=== PATIENT | female | born 2005 | race African-American/Black ===

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

== ENCOUNTER → 2025-03-24 | Emergency (ER) | payer MEDICAID ==
[~2025-03-24] VITALS: Ht 167.6 cm; Wt 87.0 kg
[2025-03-24 17:40] VITALS: O2SAT 99
[2025-03-24] MEDS: ACETAMINOPHEN 325MG TABLET PO ONE (18:50)
[2025-03-24 19:52] VITALS: TEMP 36.5; O2SAT 97
[2025-03-24 20:01] VITALS: BP 163/66; PULSE 83; RESP 15
[2025-03-24] MEDS: KETOROLAC 30MG/ML VIAL IM ONE (20:01)
[2025-03-24] MEDS: METOCLOPRAMIDE HCL 10MG TABLET PO ONE (20:02)
[2025-03-24 21:12] LABS: BASOPHILS % 0.9 % (0.0-2.0); EOSINOPHILS % 0.2 % (0.0-5.0); HEMATOCRIT. 43.4 % (36.0-48.0); HEMOGLOBIN. 14.8 g/dL (12.0-16.0); LYMPHOCYTES % 23.9 % (20.0-50.0); MEAN PLATELET VOLUME 7.5 fl (7.4-10.4); MONOCYTES % 6.6 % (2.0-8.0); NEUTROPHILS % 68.4 % (40.0-76.0); PLATELET 353 x1000/uL (130-400); RED BLOOD CELL COUNT 5.02 mill/uL (4.2-5.4); RED CELL DISTRIBUTION WIDTH 12.6 % (11.6-14.6)
[2025-03-24 21:23] LABS: HCG SCREEN NEGATIVE
[2025-03-24 21:25] LABS: CREATININE 0.8 mg/dL (0.6-1.0); UREA NITROGEN BLOOD 13 mg/dL (9-23)
[2025-03-24 21:26] LABS: TROPONIN I HIGH SENSITIVITY < 4 ng/L (3.0-34)
== END ==
LOC: ER 17:34
DX: R55 Syncope and collapse (principal); R51.9 Headache, unspecified; F12.90 Cannabis use, unspecified, uncomplicated; Z79.899 Other long term (current) drug therapy; Z88.5 Allergy status to narcotic agent
CPT/HCPCS: 80048; 81025; 84703; 85025; 84484; 36415; 71045; 93005; 96372; 99285; J8597; J1885; Z7610

== ENCOUNTER 2025-05-18 06:08 | Emergency (ER) | payer MEDICAID ==
[~2025-05-18] VITALS: Ht 162.6 cm; Wt 73.0 kg
[2025-05-18 06:26] VITALS: O2SAT 100
[2025-05-18 06:40] VITALS: BP 121/70; PULSE 86; RESP 18; TEMP 36.7; O2SAT 98
[2025-05-18] MEDS ORDERED: KETOROLAC 15MG/ML VIAL IV ONE (07:15)
[2025-05-18] MEDS ORDERED: SODIUM CHLORIDE 0.9% 1,000 ML IV ONE (07:15)
[2025-05-18] MEDS ORDERED: METOCLOPRAMIDE HCL 10MG/2ML VIAL IV ONE (07:15)
[2025-05-18 07:29] LABS: BASOPHILS % 0.6 % (0.0-2.0); EOSINOPHILS % 0.1 % (0.0-5.0); HEMATOCRIT. 43.8 % (36.0-48.0); HEMOGLOBIN. 14.6 g/dL (12.0-16.0); LYMPHOCYTES % 12.3 % (20.0-50.0); MEAN PLATELET VOLUME 7.2 fl (7.4-10.4); MONOCYTES % 6.2 % (2.0-8.0); NEUTROPHILS % 80.8 % (40.0-76.0); PLATELET 359 x1000/uL (130-400); RED BLOOD CELL COUNT 5.01 mill/uL (4.2-5.4); RED CELL DISTRIBUTION WIDTH 12.4 % (11.6-14.6)
[2025-05-18 07:42] LABS: CREATININE 0.8 mg/dL (0.6-1.0)
[2025-05-18 07:43] LABS: UREA NITROGEN BLOOD 6 mg/dL (9-23)
[2025-05-18 07:44] LABS: TROPONIN I HIGH SENSITIVITY < 4 ng/L (3.0-34)
== END 2025-05-18 08:23 | disposition left against medical advice (07) ==
LOC: ER 06:09 → CANBEDREQ 08:20 → ER 08:23
DX: R07.89 Other chest pain (principal); Z79.899 Other long term (current) drug therapy; Z88.5 Allergy status to narcotic agent
CPT/HCPCS: 99285; 71045; 80048; 81025; 85025; 84484; 36415; 93005; J7030; A4606